=== PATIENT | male | born 1995 | race Caucasian/White ===

== ENCOUNTER 2024-10-07 13:25 | Emergency (ER) | payer OTHER ==
[~2024-10-07] VITALS: Ht 182.8 cm; Wt 83.9 kg
[2024-10-07] MEDS ORDERED: CLONAZEPAM1 MG PO (13:41)
[2024-10-07] MEDS ORDERED: VENLAFAXINE HYD75 M3 PO (13:41)
[2024-10-07] MEDS ORDERED: Acetaminophen/Hydrocodone HP 10/325 PO ONE (15:20)
[2024-10-07] MEDS ORDERED: fentaNYL CITRATE/PF 50 MCG/ML SYRINGE IV ONE (15:50)
[2024-10-07] MEDS ORDERED: HYDROCODONE-AC1 EACH PO (17:16)
== END 2024-10-07 17:56 | disposition home or self-care (01) ==
LOC: ED 13:25
DX: S50.01XA Contusion of right elbow, initial encounter (principal); M25.511 Pain in right shoulder; F32.A Depression, unspecified; F41.9 Anxiety disorder, unspecified; Z79.899 Other long term (current) drug therapy; W20.8XXA Other cause of strike by thrown, projected or falling object, initial encounter; Y93.89 Activity, other specified; Y92.89 Other specified places as the place of occurrence of the external cause; Y99.0 Civilian activity done for income or pay